=== PATIENT | female | born 1950 | race Caucasian/White ===

== ENCOUNTER 2018-07-12 14:34 | Emergency (ER) | payer MEDICARE, OTHER ==
--- NOTE | 2018-07-12 14:38 | ED Physician Documentation ---
General Adult - HISTORIAN Historian: patient - HPI Stated Complaint: right hip pain Chief Complaint: Hip Injury Onset: minutes (30) Timing: better Severity: mild Further Comments: yes (She states she fell "up the stairs" and had some immediate right hip pain. She denies any head injury. She has no pain in the hip at this time. She did not take any OTC meds for the pain. She denies any loss of control of bowel or bladder. No pelvic or back pain. She in converstation said she wants a xray of her left hip and left knee due to old surgeries and wanting to make sure they are not injured in the fall. She denies any pain. She did not fall on or around those areas.) Last known Well Code/Unknown Code: Unknown - ROS CONST: no problems EYES/ENT: none CVS/RESP: none GI/: none MS/SKIN/LYMPH: none NEURO/PSYCH: denies: headache, fainting, dizziness, tingling (hypothyroidism, parkinsons. HTN, ) - PAST HX Past History: other (Parkinsons, hypothryodiism ) Surgeries/Procedures: cholecystectomy, hysterectomy, other (Left hip surgery, Left knee ) Immunizations: UTD Allergies/Adverse Reactions: Allergies Allergy/AdvReac Type Severity Reaction Status Date / Time No Known Allergies Allergy Verified 07/12/18 15:42 - SOCIAL HX Smoking History: non-smoker Alcohol Use: none Drug Use: none - FAMILY HX Family History: No - REVIEWED ASSESSMENTS Nursing Assessment Reviewed: Yes Vitals Reviewed: Yes ED Results Lab/Radiology - Radiology Radiology Impressions: Two views of right hip CLINICAL HISTORY: Fall on 07/11/2018. Pain. FINDINGS: Examination right hip in AP and frog-leg lateral views demonstrates degenerative changes with minimal osteophyte formation. There is no evident fracture and no lytic or blastic lesion. IMPRESSION: Degenerative changes. No fracture. Electronically signed on Jul 12, 2018 3:10:49 PM CDT by: Homar Angel General Adult Physical Exam - PHYSICAL EXAM GENERAL APPEARANCE: no distress EENT: eye inspection normal, ENT inspection normal NECK: normal inspection, thyroid normal CVS: reg rate & rhythm, heart sounds normal, equal pulses, no murmur ABDOMEN: soft, normal bowel sounds BACK: normal inspection, no CVA tenderness SKIN: warm/dry, normal color EXTREMITIES: non-tender, normal range of motion, no evidence of injury, no edema NEURO: oriented X3, CN's nml as tested Discharge Clincal Impression: Right hip pain Referrals: Joaquin Lima MD [Primary Care Provider] - 2 Days Comments: 1. Tylenol or Ibuprofen OTC as directed for pain 2. rest 3. Follow up with PCP IN 2-4 days 4. Return to the ER for any concerns Condition: Stable Disposition: 01 HOME, SELF-CARE Decision to Admit: NO Date of Decison to Admit: 07/12/18 Decision Time: 15:24
--- NOTE | 2018-07-12 15:13 | Diagnostic Imaging Report ---
GINGER HASSAN [facility] [address] [facility] [address] [place], [place]. [address] Report Submission Date: Jul 12, 2018 3:10:49 PM CDT Patient Study Name: SHAWN MERCADO Date: Jul 12, 2018 2:52:35 PM CDT Modality Type: DX Gender: F Description: PELVIS : 46 Institution: [facility] Physician: GINGER HASSAN Two views of right hip CLINICAL HISTORY: Fall on 07/11/2018. Pain. FINDINGS: Examination right hip in AP and frog-leg lateral views demonstrates degenerative changes with minimal osteophyte formation. There is no evident fracture and no lytic or blastic lesion. IMPRESSION: Degenerative changes. No fracture. Electronically signed on Jul 12, 2018 3:10:49 PM CDT by: Homar OTERO
[2018-07-12 15:42] VITALS: BP 168/81
== END 2018-07-12 15:38 | disposition home or self-care (01) ==
LOC: ED 14:34
DX: M25.551 Pain in right hip (principal); W19.XXXA Unspecified fall, initial encounter; Y92.9 Unspecified place or not applicable; Y93.9 Activity, unspecified; Y99.9 Unspecified external cause status
CPT/HCPCS: 73502; 99283